=== PATIENT | male | born 1950 | race Caucasian/White ===

== ENCOUNTER 2021-12-08 00:03 | Day surgery (SDC) | payer MEDICARE, OTHER, SELFPAY ==
[2021-11-26 15:05] VITALS: BMI 19.1
[2021-12-08 08:18] VITALS: BP 114/58; PULSE 78; RESP 20; TEMP 37.1; O2SAT 99
--- NOTE | 2021-12-08 08:25 | WPDANESEPPF ---
Anes - Initial Pre Proc Eval Procedure: Operation Date: 12/08/21 09:30 Proposed Procedures p Esophagogastroduodenoscopy - Horace Dickens MD Date/Time: 12/08/21 08:25 Surgeon: Horace Dickens MD Pre Op Diagnosis: FAP -Familial adenomatous polyposis Patient Data Age: 71 Gender: M Height: 1.65 m Weight: 51.9 kg Allergies Allergy/AdvReac Type Severity Reaction Status Date / Time ciprofloxacin Allergy Rash Verified 12/08/21 08:17 metronidazole [From Flagyl] Allergy Rash Verified 12/08/21 08:17 morphine Allergy Hallucinati Verified 12/08/21 08:17 ng nitroglycerin Allergy Other Verified 12/08/21 08:17 Home Medications Medication Instructions Recorded Confirmed Type clotrimazole 1 % topical cream 1 applic TOPICAL Q12H 03/04/21 11/26/21 History menthol 0.44 %-zinc oxide 20.6 % 1 applic TOPICAL QID PRN 03/04/21 11/26/21 History topical ointment tamsulosin 0.4 mg capsule 0.4 mg PO BID cap 03/04/21 11/26/21 History tramadol 50 mg tablet 50 mg PO Q8H PRN 30 Days #90 tablet 03/04/21 11/26/21 Rx Patient hx anesthesia problems: none Family hx anesthesia problems: none Results Review: All pre-operative results and documents have been reviewed as part of the pre-operative evaluation. [facility] Past Medical History Medical History (Updated 12/08/21 @ 08:46 by Ever Hawthorne MD) Bladder cancer Diarrhea DVT (deep venous thrombosis) Excoriation of multiple sites of buttock Familial adenomatous polyposis Fecal urgency RLQ abdominal pain Urethral stricture Social History Social History (Updated 03/04/21 @ 10:57 by Kay Kendall CMA) Smoking packs per day: 4 Smoking cigarettes per day: 80.0 Years smoked: 54 Smoking pack-years: 216.00 Smoking status: Former smoker Tobacco type: cigarettes Alcohol intake: never Substance use: never Substance use type: does not use Living arrangements: with family Spiritual care concerns: No Anes - Eval Final PreProcedure Day of Procedure 12/08/21 08:25 Patient weight: normal Heart: regular rate and rhythm Lungs: clear to auscultation and normal air movement Airway: Mallampati scale class II Neurological: alert and oriented Last oral intake: >/= 8 hours ASA classification: III Emergent: no Anesthetic plan: proceed Anesthesia type and monitoring: general GIVS Results Review: All pre-operative results and documents have been reviewed as part of the pre-operative evaluation. Informed Consent: The patient's anesthetic plan and its attendant risks and benefits were discussed with the patient/family/POA. Questions were solicited and answers provided to the satisfaction of the patient/family/POA.
[2021-12-08] MEDS: LACTATED RINGERS 1,000 ML 150 ML IV CONT (08:27)
--- NOTE | 2021-12-08 09:22 | PM.HPGS ---
History of Present Illness History of Present Illness Consent: Risks, benefits, and alternatives have been discussed and questions answered. Patient agrees to proceed with procedure. Chief complaint: FAP -Familial adenomatous polyposis Narrative: Iron Dougherty is a 71 year old male with FAP who has been getting EGD screening every year, he is also post total proctocolectomy with ileoanal pouch. Review of Systems Constitutional: Constitutional: Denies headache(s) and Denies weakness Eyes: Eyes: Denies blurry vision ENT: Reports Normal hearing present, Denies headache(s) and Denies neck pain Cardiovascular: Cardiovascular: Denies chest pain and Denies dyspnea Respiratory: Respiratory: Denies dyspnea Gastrointestinal: Gastrointestinal: Reports no additional gastrointestinal complaints Genitourinary: Genitourinary: Denies dysuria Musculoskeletal: Musculoskeletal: Denies neck pain Integumentary/Breasts: Skin/Breast: Denies dry skin Neurologic: Reports Normal hearing present, Denies headache(s) and Denies weakness Psychiatric: Psychiatric: Denies anxiety Endocrine: Endocrine: Denies change in body appearance Hematologic/Lymphatic: Hematologic/Lymphatic: Denies easy bleeding Allergic/Immunologic: Allergic/Immunologic: Denies urticaria PMFSH Past Medical History Medical History (Updated 12/08/21 @ 08:46 by Ever Hawthorne MD) Bladder cancer Diarrhea DVT (deep venous thrombosis) Excoriation of multiple sites of buttock Familial adenomatous polyposis Fecal urgency RLQ abdominal pain Urethral stricture Social History Social History (Updated 03/04/21 @ 10:57 by Kay Kendall CMA) Smoking packs per day: 4 Smoking cigarettes per day: 80.0 Years smoked: 54 Smoking pack-years: 216.00 Smoking status: Former smoker Tobacco type: cigarettes Alcohol intake: never Substance use: never Substance use type: does not use Living arrangements: with family Spiritual care concerns: No Meds Home Medications and Allergies Home Medications Medication Instructions Recorded Confirmed Type clotrimazole 1 % topical cream 1 applic TOPICAL Q12H 03/04/21 11/26/21 History menthol 0.44 %-zinc oxide 20.6 % 1 applic TOPICAL QID PRN 03/04/21 11/26/21 History topical ointment tamsulosin 0.4 mg capsule 0.4 mg PO BID cap 03/04/21 11/26/21 History tramadol 50 mg tablet 50 mg PO Q8H PRN 30 Days #90 tablet 03/04/21 11/26/21 Rx Allergies Allergy/AdvReac Type Severity Reaction Status Date / Time ciprofloxacin Allergy Rash Verified 12/08/21 08:17 metronidazole [From Flagyl] Allergy Rash Verified 12/08/21 08:17 morphine Allergy Hallucinati Verified 12/08/21 08:17 ng nitroglycerin Allergy Other Verified 12/08/21 08:17 Vital Signs Vital Signs - 24 hr 12/08/21 08:18 Temperature 98.7 F Pulse Rate 78 Respiratory Rate 20 Blood Pressure 114/58 L Pulse Oximetry 99 Exam Const: General: comfortable and no acute distress HENMT: General nose exam: Normal nares present Eyes: General: appearance normal, both eyes and all related structures Neck: Neck: no JVD Resp: Auscultation: clear to auscultation bilaterally Cardio: Rate: regular rate Rhythm: regular rhythm GI: Inspection: non-distended GI Palp: Yes Soft to palpation Skin: General skin exam: normal color Neuro: General: gait normal Speech: normal speech Extrem: General: normal to inspection Psych: Mental Status: mental status grossly normal Assessment and Plan Assessment and plan (1) Familial adenomatous polyposis: Code(s): D12.6 - Benign neoplasm of colon, unspecified Status: Acute Assessment and Plan: egd screening (will also use side viewing scope to assess ampulla) and calculate spigelman score
--- NOTE | 2021-12-08 09:56 | SUR.OPER ---
ESOPHAGEAL BALLOON 15- LOT: [id number] EXP: 2023-08-13
--- NOTE | 2021-12-08 09:59 | SUR.OPER ---
EGD SCOPE 232 USED 0929 TO 0935. ERCP SCOPE 308 USED 0941 TO 0952. EGD SCOPE 322 USED 0955 TO 0959. ERCP SCOPE 308 USED 1000 TO 1007. ERCP SCOPE [address], VERIFIED WITH PATRICIA DOMINGO, CCRAYS BEFORE AND AFTER PROCEDURE.
[2021-12-08 10:12] VITALS: BP 98/58; PULSE 88; RESP 19; O2SAT 90
[2021-12-08 10:22] VITALS: BP 122/68; PULSE 77; RESP 19; O2SAT 100
[2021-12-08 10:32] VITALS: BP 118/68; PULSE 75; RESP 18; O2SAT 100
== END 2021-12-08 10:48 | disposition home or self-care (01) ==
PROVIDERS: PCP Emergency Medicine; Visit Provider Internal Medicine Gastroenterology
PROC: 0DJ08ZZ Inspection of Upper Intestinal Tract, Via Natural or Artificial Opening Endoscopic (ICD-10-PCS; CPT 43235; principal; 2021-12-08 09:30)
DX: D13.1 Benign neoplasm of stomach (principal); K44.9 Diaphragmatic hernia without obstruction or gangrene; K22.2 Esophageal obstruction; Z85.51 Personal history of malignant neoplasm of bladder; Z86.718 Personal history of other venous thrombosis and embolism; Z87.891 Personal history of nicotine dependence; Z83.71 Family history of colonic polyps; Z90.49 Acquired absence of other specified parts of digestive tract; Z86.010 Personal history of colon polyps
CPT/HCPCS: 43239; 88305; C1726; J2704; J7120

== ENCOUNTER 2022-05-17 00:30 | Day surgery (SDC) | payer MEDICARE, OTHER, SELFPAY ==
[2022-05-06 12:32] VITALS: BMI 19.1
[2022-05-17 07:44] VITALS: BP 117/69; PULSE 85; RESP 18; TEMP 36.3; O2SAT 100
[2022-05-17] MEDS: LACTATED RINGERS 1,000 ML 150 ML IV CONT (08:03)
--- NOTE | 2022-05-17 08:36 | P.PNAN_ITS ---
Anes - Initial Pre Proc Eval Procedure: Operation Date: 05/17/22 09:00 Proposed Procedures p Flexible Sigmoidoscopy - Horace Dickens MD Date/Time: 05/17/22 08:36 Surgeon: Horace Dickens MD Pre Op Diagnosis: diarrhea Patient Data Age: 71 Gender: M Height: 1.65 m Weight: 51.2 kg Last Vital Signs Temp 97.3 F L 05/17/22 07:44 Pulse 85 05/17/22 07:44 Resp 18 05/17/22 07:44 BP 117/69 05/17/22 07:44 Pulse Ox 100 05/17/22 07:44 O2 Del Method Room Air 05/17/22 07:44 Allergies Allergy/AdvReac Type Severity Reaction Status Date / Time ciprofloxacin Allergy Rash Verified 05/17/22 07:43 metronidazole [From Flagyl] Allergy Rash Verified 05/17/22 07:43 morphine Allergy Hallucinati Verified 05/17/22 07:43 ng nitroglycerin Allergy Other Verified 05/17/22 07:43 Home Medications Medication Instructions Recorded Confirmed Type clotrimazole 1 % topical cream 1 applic topical Q12H 03/04/21 05/06/22 History menthol 0.44 %-zinc oxide 20.6 % 1 applic topical QID PRN Rash 03/04/21 05/06/22 History topical ointment (Calmoseptine) tamsulosin 0.4 mg capsule (Flomax) 0.4 mg PO BID 03/04/21 05/06/22 History tramadol 50 mg tablet 50 mg PO Q8H PRN pain 1 month #90 03/25/22 05/06/22 Rx tabs cranberry 400 mg capsule 400 mg PO DAILY 05/06/22 05/06/22 History pantoprazole 40 mg tablet,delayed 40 mg PO DAILY 05/06/22 05/06/22 History release Patient hx anesthesia problems: none Family hx anesthesia problems: none Results Review: All pre-operative results and documents have been reviewed as part of the pre- operative evaluation. [facility] Past Medical History Medical History Bladder cancer Diarrhea DVT (deep venous thrombosis) Excoriation of multiple sites of buttock Familial adenomatous polyposis Fecal urgency RLQ abdominal pain Urethral stricture Social History Social History Smoking packs per day: 4 Smoking cigarettes per day: 80.0 Years smoked: 50 Smoking pack-years: 200.00 Smoking status: Former smoker Tobacco type: cigarettes Alcohol intake: never Substance use: never Substance use type: does not use Living arrangements: with family Spiritual care concerns: No Anes - Eval Final PreProcedure Day of Procedure 05/17/22 08:36 Patient weight: normal Heart: regular rate and rhythm Lungs: clear to auscultation Airway: Mallampati scale class III Neurological: alert and oriented Last oral intake: >/= 8 hours ASA classification: III Emergent: no Anesthetic plan: proceed Anesthesia type and monitoring: general GIVS and standard monitoring Results Review: All pre-operative results and documents have been reviewed as part of the pre- operative evaluation. Informed Consent: The patient's anesthetic plan and its attendant risks and benefits were discussed with the patient/family/POA. Questions were solicited and answers provided to the satisfaction of the patient/family/POA.
--- NOTE | 2022-05-17 08:39 | PM.HPGS ---
History of Present Illness History of Present Illness Consent: Risks, benefits, and alternatives have been discussed and questions answered. Patient agrees to proceed with procedure. Chief complaint: diarrhea Narrative: Iron Dougherty is a 71 year old male here for sigmoidoscopys. He has FAP with total proctocolectomy with ileoanal pouch. 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 Lately with diarrhea using imodium prn. Review of Systems Constitutional: Constitutional: Denies headache(s) and Denies weakness Eyes: Eyes: Denies blurry vision ENT: Reports Normal hearing present, Denies headache(s) and Denies neck pain Cardiovascular: Cardiovascular: Denies chest pain and Denies dyspnea Respiratory: Respiratory: Denies dyspnea Gastrointestinal: Gastrointestinal: Reports no additional gastrointestinal complaints Genitourinary: Genitourinary: Denies dysuria Musculoskeletal: Musculoskeletal: Denies neck pain Integumentary/Breasts: Skin/Breast: Denies dry skin Neurologic: Reports Normal hearing present, Denies headache(s) and Denies weakness Psychiatric: Psychiatric: Denies anxiety Endocrine: Endocrine: Denies change in body appearance Hematologic/Lymphatic: Hematologic/Lymphatic: Denies easy bleeding Allergic/Immunologic: Allergic/Immunologic: Denies urticaria PMFSH Past Medical History Medical History Bladder cancer Diarrhea DVT (deep venous thrombosis) Excoriation of multiple sites of buttock Familial adenomatous polyposis Fecal urgency RLQ abdominal pain Urethral stricture Social History Social History Smoking packs per day: 4 Smoking cigarettes per day: 80.0 Years smoked: 50 Smoking pack-years: 200.00 Smoking status: Former smoker Tobacco type: cigarettes Alcohol intake: never Substance use: never Substance use type: does not use Living arrangements: with family Spiritual care concerns: No Meds Home Medications and Allergies Home Medications Medication Instructions Recorded Confirmed Type clotrimazole 1 % topical cream 1 applic topical Q12H 03/04/21 05/06/22 History menthol 0.44 %-zinc oxide 20.6 % 1 applic topical QID PRN Rash 03/04/21 05/06/22 History topical ointment (Calmoseptine) tamsulosin 0.4 mg capsule (Flomax) 0.4 mg PO BID 03/04/21 05/06/22 History tramadol 50 mg tablet 50 mg PO Q8H PRN pain 1 month #90 03/25/22 05/06/22 Rx tabs cranberry 400 mg capsule 400 mg PO DAILY 05/06/22 05/06/22 History pantoprazole 40 mg tablet,delayed 40 mg PO DAILY 05/06/22 05/06/22 History release Allergies Allergy/AdvReac Type Severity Reaction Status Date / Time ciprofloxacin Allergy Rash Verified 05/17/22 07:43 metronidazole [From Flagyl] Allergy Rash Verified 05/17/22 07:43 morphine Allergy Hallucinati Verified 05/17/22 07:43 ng nitroglycerin Allergy Other Verified 05/17/22 07:43 Vital Signs Vital Signs - 24 hr 05/17/22 07:44 Temperature 97.3 F L Pulse Rate 85 Respiratory Rate 18 Blood Pressure 117/69 Pulse Oximetry 100 Oxygen Delivery Room Air Exam Const: General: comfortable and no acute distress HENMT: General nose exam: Normal nares present Eyes: General: appearance normal, both eyes and all related structures Neck: Neck: no JVD Resp: Auscultation: clear to auscultation bilaterally Cardio: Rate: regular rate Rhythm: regular rhythm GI: Inspection: non-distended GI Palp: Yes Soft to palpation Skin: General skin exam: normal color Neuro: General: gait normal Speech: normal speech Extrem: General: normal to inspection Psych: Mental Status: mental status grossly normal Assessment and Plan Assessment and plan (1) Familial adenomatous polyposis: Code(s): D12.6 - Benign neoplasm of colon, unspecifie
[2022-05-17 08:57] VITALS: BP 92/55; PULSE 80; RESP 18; O2SAT 96
[2022-05-17 09:07] VITALS: BP 109/63; PULSE 75; RESP 21; O2SAT 100
[2022-05-17 09:17] VITALS: BP 104/63; PULSE 73; RESP 22; O2SAT 97
== END 2022-05-17 09:23 | disposition home or self-care (01) ==
PROVIDERS: PCP Emergency Medicine; Visit Provider Internal Medicine Gastroenterology
PROC: 0DJD8ZZ Inspection of Lower Intestinal Tract, Via Natural or Artificial Opening Endoscopic (ICD-10-PCS; CPT 45330; principal; 2022-05-17 09:00)
DX: R19.7 Diarrhea, unspecified (principal); Z90.49 Acquired absence of other specified parts of digestive tract; Z83.71 Family history of colonic polyps; D12.0 Benign neoplasm of cecum; K63.5 Polyp of colon; Z98.0 Intestinal bypass and anastomosis status; Z85.51 Personal history of malignant neoplasm of bladder; Z86.718 Personal history of other venous thrombosis and embolism; Z87.891 Personal history of nicotine dependence
CPT/HCPCS: 45338; 88305; J2704; J7120